=== PATIENT | female | born 1940 | race Caucasian/White ===

== ENCOUNTER 2017-03-22 08:28 | Outpatient (CLI) | payer MEDICARE, BC ==
[2017-03-22 10:39] LABS: Hemoglobin 13.2 g/dL (12.0-16.0); Mean Corpuscular HGB CONC 31.9 g/dL (32.0-36.0); Mean Corpuscular Hemoglobin 29.5 pg (27.0-31.0); Mean Corpuscular Volume 92.4 fl (81.0-99.0); Mean Platelet Volume 6.9 fL (7.4-10.4); Platelet Count 444 thou/uL (130-400); RBC Distribution Width 11.2 % (11.5-14.5); Red Blood Cell (RBC) Count 4.47 mill/uL (4.20-5.40); White Blood Cell (WBC) Count 9.9 thou/uL (4.8-10.8)
[2017-03-22 10:52] LABS: PTT 27.2 SEC (22.9-36.1); Prothrombin Time 12.7 SEC (12.0-14.7)
[2017-03-22 11:02] LABS: ALT (SGPT) 16 U/L (8-55); AST (SGOT) 10 U/L (5-34); Albumin 4.1 g/dL (3.4-4.8); Alkaline Phosphatase 137 U/L (40-150); Anion Gap 13 mmol/L (10-20); BUN (Urea Nitrogen) 14 mg/dL (9.8-20.1); Bilirubin, Total 0.7 mg/dL (0.2-1.2); Calc. Creatinine Clearance 0 mL/min (70-130); Calcium 9.8 mg/dL (7.8-10.44); Carbon Dioxide 25 mmol/L (23-31); Cardiac Risk 3.4 (Less than 4.5); Chloride 96 mmol/L (98-107); Cholesterol 182 mg/dl (< 200 Desired); Estimated GFR-MDRD 79; Globulin 2.4 g/dL (2.4-3.5); Glucose 153 mg/dL (83-110); HDL Cholesterol 53 mg/dL (>60 Neg Risk); LDL Cholesterol, Calculated 107 mg/dL; Potassium 5.2 mmol/L (3.5-5.1); Protein, Total 6.5 g/dL (6.0-8.3); Sodium 129 mmol/L (136-145); Triglycerides 111 mg/dL (Less than 150)
--- NOTE | 2017-05-21 21:48 | EKG ---
Test Reason : Blood Pressure : / mmHG Vent. Rate : 060 BPM Atrial Rate : 060 BPM P-R Int : 188 ms QRS Dur : 158 ms QT Int : 474 ms P-R-T Axes : 059 -89 022 degrees QTc Int : 474 ms Normal sinus rhythm with sinus arrhythmia Left axis deviation Left bundle branch block Abnormal ECG When compared with ECG of 19-APR-2014 23:36, T wave inversion less evident in Lateral leads Confirmed by ALAN HARRELL M.D. ([id number] on 05/21/2017 9:48:10 PM Referred By: SAMEER Confirmed By:ALAN HARRELL M.D.
== END 2017-03-22 08:29 | disposition home or self-care (01) ==
LOC: LABBT 08:28
PROVIDERS: ATTEND Internal Medicine Cardiovascular Disease
DX: Z01.810 Encounter for preprocedural cardiovascular examination (principal); Z01.812 Encounter for preprocedural laboratory examination; I25.10 Atherosclerotic heart disease of native coronary artery without angina pectoris
CPT/HCPCS: 80053; 80061; 85027; 85610; 85730; 93005; 93010

== ENCOUNTER 2017-03-26 06:02 | Day surgery (SDC) | payer MEDICARE, BC ==
[2017-03-22 09:06] VITALS: BMI 31.8
[2017-03-26] MEDS ORDERED: Iopamidol 370 76% 100 ML VIAL ONE (11:34)
--- NOTE | 2017-03-26 19:49 | DIS ---
DATE OF ADMISSION: 03/26/2017 DATE OF DISCHARGE: 03/26/2017 INDICATION: She was seen in the outpatient facility to undergo elective cardiac catheterization. No w, she was found to have an abnormal stress test and decrease in left ventricular systolic function. She was taken to the cardiac cath lab radiology technician, prepped and draped in the sterile fashion. Using a right fem oral artery approach, a 4-Angolan introducer sheath was placed in the right femoral artery using 4-Smooth [facility] JL4 catheter was advanced to the left main. Coronary shows a left main retrieving significant di sease. The mid left anterior descending artery has about 50% stenosis, but no flow limiting disease is noted. The diagonal was free of any significant disease. The left circumflex shows a 50% stenosi s in the distal left circumflex shows as a takeoff of a large obtuse marginal branch, which has no ev idence of stenosis. The catheter was removed using a 4-Angolan JR, catheter was advanced near the ost ia of the right coronary through the anterior takeoff, very difficult to engage absolutely in the ost ium, but there was enough contrast given to able to fill and see the vessels adequately that shows a proximal 30% stenosis in the right coronary artery and then 2 serial lesions in the mid section, 50% stenosis, but again no flow limiting disease was noted. The cast was was removed using 4-Angolan pigt ail, catheter was advanced to the left ventricle, which shows a left ventricular pressure. The LVP w as about 11 mmHg and the overall ejection fraction was estimated 30% to 35%. She did well during the procedure. There were no other complications or difficulties noted. We will plan for her to be see n in the office in a couple of weeks and I suggested to restart her home medications and aggressively managed her decreasing ejection fraction. She may eventually need to undergo an AICD implant. DISCHARGE MEDICATIONS: Include Coreg 3.125 mg b.i.d., lisinopril 5 mg daily, Megace 20 mg every othe r day, olanzapine 2.5 mg 2 tablets daily, Colace 100 mg 1 tablet b.i.d., Zocor 20 mg daily, Tirosint 125 mcg daily, Cymbalta 30 mg b.i.d. and aspirin 81 mg daily. I will see her back in the office in the next couple of weeks to see how she is doing. We will ga nue medical management. We may consider starting her on Entresto for the decreased ejection fraction . We will also discuss whether or not she will need to undergo an AICD implant due to the decrease i n left ventricular systolic function. DISCHARGE DIAGNOSES: Same as the admission diagnoses, which included coronary artery disease, hypert ension, hypercholesterolemia and diabetes, as well as depression. PROCEDURES IN THE HOSPITAL: Include cardiac catheterization, left ventriculogram and coronary arteri ography.
== END 2017-03-26 13:03 | disposition home or self-care (01) ==
LOC: CCL 06:02
PROVIDERS: ATTEND Internal Medicine Cardiovascular Disease
DX: I25.10 Atherosclerotic heart disease of native coronary artery without angina pectoris (principal); I10 Essential (primary) hypertension; E78.00 Pure hypercholesterolemia, unspecified; E11.9 Type 2 diabetes mellitus without complications; K21.9 Gastro-esophageal reflux disease without esophagitis; E03.9 Hypothyroidism, unspecified; F32.9 Major depressive disorder, single episode, unspecified; Z88.8 Allergy status to other drugs, medicaments and biological substances; Z98.890 Other specified postprocedural states; Z82.49 Family history of ischemic heart disease and other diseases of the circulatory system
CPT/HCPCS: 93458; C1769; J1644

== ENCOUNTER 2019-03-03 08:36 | Day surgery (SDC) | payer MEDICARE, MEDICAID ==
[2019-02-28 10:10] VITALS: BMI 28.7
[2019-03-03 09:38] LABS: #Eosinphils 0.1 thou/uL (0.0-0.7); #Lymphocytes 2.3 thou/uL (1.20-3.40); #Monocytes 0.6 thou/uL (0.11-0.59); #Neutrophils 4.5 thou/uL (1.40-6.50); %Basophils 0.3 % (0.0-1.0); %Eosinophils 1.2 % (0.0-10.0); %Lymphocytes 30.6 % (21.0-51.0); %Monocytes 8.2 % (0.0-10.0); %Neutrophils 59.6 % (42.0-75.0); Hemoglobin 12.6 g/dL (12.0-16.0); Mean Corpuscular HGB CONC 33.1 g/dL (32.0-36.0); Mean Corpuscular Volume 96.7 fL (78.0-98.0); Mean Platelet Volume 7.3 fL (7.4-10.4); Platelet Count 407 thou/uL (130-400); RBC Distribution Width 10.8 % (11.5-14.5); Red Blood Cell (RBC) Count 3.95 mill/uL (4.20-5.40); White Blood Cell (WBC) Count 7.5 thou/uL (4.8-10.8)
[2019-03-03 10:07] LABS: Anion Gap 12 mmol/L (10-20); BUN (Urea Nitrogen) 11 mg/dL (9.8-20.1); Calc. Creatinine Clearance 74 mL/min (70-130); Calcium 9.4 mg/dL (7.8-10.44); Carbon Dioxide 24 mmol/L (23-31); Chloride 97 mmol/L (98-107); Estimated GFR-MDRD 79; Glucose 125 mg/dL (83-110); Potassium 4.2 mmol/L (3.5-5.1); Sodium 129 mmol/L (136-145)
[2019-03-03 10:58] LABS: PTT 29.1 SEC (22.9-36.1); Prothrombin Time 12.8 SEC (12.0-14.7)
[2019-03-03] MEDS ORDERED: Lidocaine 1% (PF) 30 ML VIAL ONE (12:05)
[2019-03-03] MEDS ORDERED: Midazolam HCl 2 mg/2 ml Vial ONE (12:30)
[2019-03-03] MEDS ORDERED: Fentanyl 100 MCG/2 ML VIAL ONE (12:30)
[2019-03-03] MEDS ORDERED: Propofol 500 MG/50 ML VIAL ONE (12:30)
--- NOTE | 2019-03-03 15:52 | RAD ---
RADIOGRAPH CHEST 1 VIEW: DATE: 03/03/2019. HISTORY: A 78-year-old female for defibrillator lead revision. COMPARISON: 06/12/2017. FINDINGS: There are no air space densities, pulmonary edema, pneumothorax, or cardiomegaly. The lateral costop hrenic angles are sharp. Again noted are the surgical clips at the lower neck. There is a new left subclavian triple lead AICD with lead tips overlying the expected locations of the right atrial appen dage, right ventricle, and coronary sinus. IMPRESSION: 1. No acute cardiopulmonary findings. 2. Automatic implantable cardioverter-defibrillator. jn [] POS: OFF
[2019-03-03] MEDS ORDERED: Acetaminophen/Codeine 30-300mg Tablet ONE (16:18)
--- NOTE | 2019-03-03 18:25 | RAD ---
Chest one view HISTORY: Subcutaneous air. Dyspnea. COMPARISON: 03/03/2019. Earlier exam on the same date. FINDINGS: Cardiac silhouette and pulmonary vasculature are unremarkable. Mediastinum is midline with aortic calcification. Multi lead left subclavian cardiac electronic device is unchanged in position. No evidence of pneumothorax. No gas lucency is apparent within the subcutaneous tissues. There are po stoperative changes of the lower midline neck. IMPRESSION: No evidence of pneumothorax or subcutaneous gas. Findings are stable.
--- NOTE | 2019-03-05 13:36 | EKG ---
Test Reason : PREOP Blood Pressure : / mmHG Vent. Rate : 064 BPM Atrial Rate : 064 BPM P-R Int : 186 ms QRS Dur : 156 ms QT Int : 480 ms P-R-T Axes : 069 -49 081 degrees QTc Int : 495 ms Normal sinus rhythm with sinus arrhythmia Left axis deviation Left bundle branch block Abnormal ECG Confirmed by RAYNA DOWNEY ([id number]) on 03/05/2019 1:36:07 PM Referred By: REBECA Confirmed By:RAYNA DOWNEY
--- NOTE | 2019-03-05 13:41 | EKG ---
Test Reason : POST Blood Pressure : / mmHG Vent. Rate : 066 BPM Atrial Rate : 066 BPM P-R Int : 202 ms QRS Dur : 146 ms QT Int : 466 ms P-R-T Axes : 089 -49 169 degrees QTc Int : 488 ms Suspect unspecified pacemaker failure Atrial-sensed ventricular-paced rhythm Abnormal ECG When compared with ECG of 03-MAR-2019 09:22, (Unconfirmed) Electronic ventricular pacemaker has replaced Sinus rhythm Confirmed by RAYNA DOWNEY (2) on 03/05/2019 1:40:34 PM Referred By: REBECA Confirmed By:RAYNA DOWNEY
== END 2019-03-03 19:05 | disposition home or self-care (01) ==
LOC: CCL 08:36
PROVIDERS: ATTEND Internal Medicine Cardiovascular Disease
PROC: 0JWT0PZ Revision of Cardiac Rhythm Related Device in Trunk Subcutaneous Tissue and Fascia, Open Approach (ICD-10-PCS; principal; 2019-03-03)
PROC: 02PA3MZ Removal of Cardiac Lead from Heart, Percutaneous Approach (ICD-10-PCS; 2019-03-03)
PROC: 02H63KZ Insertion of Defibrillator Lead into Right Atrium, Percutaneous Approach (ICD-10-PCS; 2019-03-03)
PROC: 02HK3KZ Insertion of Defibrillator Lead into Right Ventricle, Percutaneous Approach (ICD-10-PCS; 2019-03-03)
PROC: 02HL3KZ Insertion of Defibrillator Lead into Left Ventricle, Percutaneous Approach (ICD-10-PCS; 2019-03-03)
DX: T82.120A Displacement of cardiac electrode, initial encounter (principal); I11.0 Hypertensive heart disease with heart failure; I50.22 Chronic systolic (congestive) heart failure; I25.5 Ischemic cardiomyopathy; I25.10 Atherosclerotic heart disease of native coronary artery without angina pectoris; E11.9 Type 2 diabetes mellitus without complications; K21.9 Gastro-esophageal reflux disease without esophagitis; F41.9 Anxiety disorder, unspecified; F31.9 Bipolar disorder, unspecified; F03.90 Unspecified dementia, unspecified severity, without behavioral disturbance, psychotic disturbance, mood disturbance, and anxiety; E78.5 Hyperlipidemia, unspecified; E89.0 Postprocedural hypothyroidism; Y83.1 Surgical operation with implant of artificial internal device as the cause of abnormal reaction of the patient, or of later complication, without mention of misadventure at the time of the procedure; Z79.51 Long term (current) use of inhaled steroids; Z79.82 Long term (current) use of aspirin; Z79.84 Long term (current) use of oral hypoglycemic drugs; Z79.899 Other long term (current) drug therapy; Z88.8 Allergy status to other drugs, medicaments and biological substances
CPT/HCPCS: 33223; 33225; 33244; 33249; 36005; 36415; 71045; 75820; 80048; 85025; 85610; 85730; 93005; 93010; 93641; J0690; J2001; J2250; J2704; J3010; J3490